=== PATIENT | female | born 1950 | race Caucasian/White ===

== ENCOUNTER 2022-09-09 05:38 | Inpatient (IN) ==
[2022-09-04 16:53] LABS: Mucus,Urine Few /LPF (Occasional); RBC,Urine 2 /HPF (0-4); Squamous Epithelial Cell,Urine Occasional /HPF (0-10)
[2022-09-04 16:55] LABS: Urine Appearance Clear (Clear); Urine Color Yellow (Yellow)
[2022-09-04 16:56] LABS: Bilirubin,Urine Negative (Negative); Blood, Urine Trace mg/dL (Negative); Glucose,Urine (UA) Negative (Negative); Ketones,Urine Negative (Negative); Nitrite,Urine Negative (Negative); Protein,Urine Negative (Negative)
[~2022-09-09 05:38] MED LIST: LACTATED RINGERS 1,000 ML IV SCH
[2022-09-09] MEDS ORDERED: VANCOMYCIN INJ 1,000 MG in SODIUM CHLORIDE 0.9% 250 ML IV ONE (06:00)
[2022-09-09] MEDS ORDERED: ACETAMINOPHEN 500 MG TABLET PO ONE (06:29)
[2022-09-09] MEDS ORDERED: GABAPENTIN 400 MG CAPSULE PO ONE (06:29)
[2022-09-09] MEDS ORDERED: LIDOCAINE 1% 5 ML VIAL ONE (06:30)
[2022-09-09] MEDS ORDERED: DEXAMETHASONE 4 MG/1 ML VIAL ONE (06:30)
[2022-09-09] MEDS ORDERED: ROPIVACAINE 0.5% 30 ML VIAL ONE (06:30)
[2022-09-09] MEDS ORDERED: GABAPENTIN 400 MG CAPSULE ONE (06:31)
[2022-09-09] MEDS ORDERED: ACETAMINOPHEN 500 MG TABLET ONE (06:31)
[2022-09-09] MEDS ORDERED: LIDOCAINE 2% 5 ML VIAL ONE (06:35)
[2022-09-09] MEDS ORDERED: ONDANSETRON 4 MG/2 ML VIAL ONE (06:35)
[2022-09-09] MEDS ORDERED: propofoL 200 MG/20 ML VIAL IV ONE (06:35)
[2022-09-09 06:37] LABS: INR 0.9; PT Patient Result 9.7 SECS (10.1-12.1); Partial Thromboplastin Time 24.5 SECS (23.7-32.9)
[2022-09-09] MEDS ORDERED: fentaNYL 100 MCG/2 ML VIAL ONE (06:38)
[2022-09-09] MEDS ORDERED: MIDAZOLAM 2 MG/2 ML VIAL ONE ×2 (06:38)
[2022-09-09] MEDS ORDERED: buprenorphine HCL 0.3 MG/ML VIAL ONE (06:38)
[2022-09-09] MEDS ORDERED: SCOPOLAMINE 1.5 MG PATCH TRANSDERM ONE (06:42)
[2022-09-09] MEDS ORDERED: AMISULPRIDE 10 MG/4 ML VIAL IV ONE (07:00)
[2022-09-09] MEDS ORDERED: PROMETHAZINE 25 MG/1 ML VIAL IM PRN (07:04)
[2022-09-09] MEDS ORDERED: diphenhydrAMINE CAP 25 MG CAPSULE PO PRN (07:04)
[2022-09-09] MEDS ORDERED: TEMAZEPAM 7.5 MG CAPSULE PO PRN (07:04)
[2022-09-09] MEDS ORDERED: MAGNESIUM HYDROXIDE SUSP 30 ML UDCUP PO PRN (07:04)
[2022-09-09] MEDS ORDERED: LACTULOSE 20 GM/30 ML UDCUP PO PRN (07:04)
[2022-09-09] MEDS ORDERED: MORPHINE 2 MG/1 ML SYRINGE IV PRN ×2 (07:04→07:13)
[2022-09-09] MEDS ORDERED: BISACODYL 10 MG SUPP RECTAL PRN (07:04)
[2022-09-09] MEDS ORDERED: ACTIVATED CHARCOAL 200 MG PO PRN (07:07)
[2022-09-09] MEDS ORDERED: PROMETHAZINE 25 MG/1 ML VIAL ONE (07:38)
[2022-09-09] MEDS ORDERED: PHENYLEPHRINE 1 MG/10 ML SYRINGE IV ONE ×2 (07:39→08:41)
[2022-09-09] MEDS ORDERED: SODIUM CHLORIDE 0.9% 100 ML IV ONE (07:58)
[2022-09-09] MEDS ORDERED: TRANEXAMIC ACID 1,000 MG/10 ML VIAL ONE (07:58)
[2022-09-09] MEDS ORDERED: LACTATED RINGERS 1,000 ML IV ONE (08:03)
[2022-09-09] MEDS ORDERED: CALCIUM GUMMIES PO SCH (09:00)
[2022-09-09] MEDS: ceFAZolin 2,000 MG/50 ML DUPLEX IV SCH ×2 (13:49→20:42)
[2022-09-09] MEDS: ONDANSETRON 4 MG/2 ML VIAL IV PRN ×2 (14:50→18:50)
[2022-09-09] MEDS: LEVOTHYROXINE 100 MCG TABLET PO SCH (15:07)
[2022-09-09] MEDS: DOCUSATE SODIUM 100 MG CAPSULE PO SCH ×2 (15:07→20:41)
[2022-09-09] MEDS: PRAMIPEXOLE 0.25 MG TABLET PO SCH (20:41)
[2022-09-09] MEDS: ATORVASTATIN 20 MG TABLET PO SCH (20:41)
[2022-09-10 05:01] LABS: Basophils % 0.2 % (0.0-0.8); Hematocrit 40.8 VOL% (35.7-47.0); Hemoglobin 12.7 GM/DL (12.0-16.0); Immature Granulocytes % 0.6 %; Immature Granulocytes Absolute 0.08 #; Lymphocytes # 1.5 10*3/uL (1.4-4.0); Lymphocytes % 11.4 % (21.3-54.2); Mean Corpuscular HGB Conc 31.1 GM/DL (32-36); Mean Corpuscular Volume 97.8 FL (87-102); Mean Platelet Volume 10.5 FL (9.6-12.0); Monocytes % 7.5 % (1.7-12.7); Neutrophils % 80.3 % (38.7-73.9); Platelet Count 212 T/CUMM (130-400); Red Blood Count 4.17 MC/CUMM (3.8-5.5); Red Cell Distribution Width 13.2 % (9.3-17.3); White Blood Count 13.16 T/CUMM (4-12)
[2022-09-10 05:20] LABS: Osmolality,Calculated 276.7 MOS/KG (273-304); Potassium 4.3 MMOL/L (3.5-5.1)
[2022-09-10] MEDS: LEVOTHYROXINE 100 MCG TABLET PO SCH (06:25)
[2022-09-10] MEDS ORDERED: ACETAMINOPHEN 325 MG TABLET PO PRN (07:05)
[2022-09-10] MEDS: PANTOPRAZOLE 40 MG TABLET PO SCH (08:59)
[2022-09-10] MEDS: LISINOPRIL/HCTZ 20-12.5 MG TABLET PO SCH (08:59)
[2022-09-10] MEDS: DOCUSATE SODIUM 100 MG CAPSULE PO SCH ×2 (08:59→21:28)
[2022-09-10] MEDS: ONDANSETRON 4 MG/2 ML VIAL IV PRN (08:59)
[2022-09-10] MEDS: ASPIRIN EC 81 MG TABLET PO SCH (09:00)
[2022-09-10] MEDS: ZINC GLUCONATE 50 MG TABLET PO SCH (09:00)
[2022-09-10] MEDS: CHOLECALCIFEROL 1,000 UNIT TABLET PO SCH (09:00)
[2022-09-10] MEDS: CETIRIZINE 10 MG TABLET PO SCH (09:00)
[2022-09-10] MEDS: PRAMIPEXOLE 0.25 MG TABLET PO SCH (21:27)
[2022-09-10] MEDS: FONDAPARINUX 2.5 MG/0.5 ML SYRINGE SUBCUT SCH (21:27)
[2022-09-10] MEDS: ATORVASTATIN 20 MG TABLET PO SCH (21:28)
[2022-09-11] MEDS: LEVOTHYROXINE 100 MCG TABLET PO SCH (06:06)
[2022-09-11] MEDS: CETIRIZINE 10 MG TABLET PO SCH (08:17)
[2022-09-11] MEDS: ASPIRIN EC 81 MG TABLET PO SCH (08:17)
[2022-09-11] MEDS: PANTOPRAZOLE 40 MG TABLET PO SCH (08:17)
[2022-09-11] MEDS: ZINC GLUCONATE 50 MG TABLET PO SCH (08:17)
[2022-09-11] MEDS: CHOLECALCIFEROL 1,000 UNIT TABLET PO SCH (08:17)
[2022-09-11] MEDS: LISINOPRIL/HCTZ 20-12.5 MG TABLET PO SCH (08:17)
[2022-09-11] MEDS: DOCUSATE SODIUM 100 MG CAPSULE PO SCH ×2 (08:36→20:14)
[2022-09-11] MEDS: ATORVASTATIN 20 MG TABLET PO SCH (20:14)
[2022-09-11] MEDS: PRAMIPEXOLE 0.25 MG TABLET PO SCH (20:14)
[2022-09-11] MEDS: FONDAPARINUX 2.5 MG/0.5 ML SYRINGE SUBCUT SCH (20:14)
[2022-09-12] MEDS: LEVOTHYROXINE 100 MCG TABLET PO SCH (05:53)
[2022-09-12 08:07] VITALS: BP 139/59
[2022-09-12] MEDS: DOCUSATE SODIUM 100 MG CAPSULE PO SCH (08:09)
[2022-09-12] MEDS: LISINOPRIL/HCTZ 20-12.5 MG TABLET PO SCH (08:09)
[2022-09-12] MEDS: PANTOPRAZOLE 40 MG TABLET PO SCH (08:09)
[2022-09-12] MEDS: ZINC GLUCONATE 50 MG TABLET PO SCH (08:09)
[2022-09-12] MEDS: ASPIRIN EC 81 MG TABLET PO SCH (08:09)
[2022-09-12] MEDS: CHOLECALCIFEROL 1,000 UNIT TABLET PO SCH (08:09)
[2022-09-12] MEDS: CETIRIZINE 10 MG TABLET PO SCH (08:09)
== END 2022-09-12 09:55 | disposition swing bed (61) | DRG 470 ==
LOC: N.OR 05:38 → N.SDSINP 05:38 → N.3E 07:04
PROVIDERS: ADMIT Orthopaedic Surgery; ATTEND Orthopaedic Surgery